=== PATIENT | female | born 1960 | race Caucasian/White ===

== ENCOUNTER 2018-01-26 16:08 | Inpatient (IN) | payer MEDICAID ==
[~2018-01-26] VITALS: Ht 165.1 cm; Wt 80.9 kg
[~2018-01-26 16:08] MED LIST: CANA300T PO; CHOL40002 PO; DOCU100C33 PO; ESTR10TA VG; ESZO3TAB32 PO; HYDR12.597 PO; LISI10TA4 PO; METF500T PO; METH-603 PO; PREG150C PO; TAMS0.4C32 PO
[2018-01-26 17:23] LABS: BASOPHILS % (AUTO) 0.1 % (0-1); EOSINOPHILS # (AUTO) 0.1 X10'3 (0-0.9); EOSINOPHILS % (AUTO) 1.1 % (0-6); HEMATOCRIT 44.2 % (35.0-45.0); HEMOGLOBIN 14.9 g/dl (12.0-16.0); LYMPHOCYTES % (AUTO) 30.8 % (21-51); MEAN CORPUSCULAR HGB CONC 33.8 % (33.0-36.5); MEAN PLATELET VOLUME 9.8 FL (7.4-10.4); MONOCYTES # (AUTO) 0.6 X10'3 (0-0.9); MONOCYTES % (AUTO) 4.6 % (2-12); NEUTROPHILS # (AUTO) 8.3 X10'3 (1.8-7.7); NEUTROPHILS % (AUTO) 63.4 % (42-75); PLATELET COUNT 291 X10'3 (140-440); RED BLOOD COUNT 5.14 X10'6 (4.20-5.60); RED CELL DISTRIBUTION WIDTH 11.9 % (11.5-14.5); WHITE BLOOD COUNT 13.1 X10'3 (4.5-11.0)
[2018-01-26 17:28] LABS: CLARITY,URINE SLIGHTLY CLOUDY (Clear); COLOR,URINE STRAW (Yellow); GLUCOSE, URINE >=1000 mg/dl (Neg); KETONES,URINE NEGATIVE (Neg); LEUKOCYTE ESTERASE ,URINE NEGATIVE (Neg); NITRITES, URINE NEGATIVE (Neg); OCCULT BLOOD,URINE MODERATE (Neg); PH,URINE 5.5 (4.8-8.0); PROTEIN,URINE NEGATIVE (Neg); UROBILINOGEN,URINE 0.2 E.U/dL (0.2-1.0)
[2018-01-26 17:34] LABS: UA COLLECTION TYPE CLN CATCH MIDSTREAM
[2018-01-26 17:40] LABS: MUCUS STRANDS FEW /LPF (Neg); SQUAMOUS EPITHELIAL CELL,UR FEW /LPF (FEW); WBC CLUMPS,URINE MODERATE /HPF (NEGATIVE)
[2018-01-26 17:41] LABS: BACTERIA,URINE FEW /HPF (Neg); RBC,URINE 20-50 /HPF (0-2); WBC,URINE 30-50 /HPF (0-4)
[2018-01-26 17:42] LABS: TRANSITIONAL EPI CELLS,URINE FEW /HPF
[2018-01-26 17:43] LABS: ALANINE AMINOTRANSFERASE 88 U/L (12-78); ALBUMIN 3.8 G/DL (3.4-5.0); ALBUMIN/GLOBULIN RATIO 0.8 (1.1-1.5); ALKALINE PHOSPHATASE 149 IU/L (46-116); ANION GAP 16 (8-16); ASPARTATE AMINO TRANSFERASE 75 U/L (10-37); BILIRUBIN,TOTAL 0.6 MG/DL (0.1-1.0); BLOOD UREA NITROGEN 20 MG/DL (7-18); BUN/CREATININE RATIO 14.1 (6.6-38.0); CALCIUM 10.2 MG/DL (8.5-10.1); CHLORIDE 90 MMOL/L (99-107); CREATININE 1.42 MG/DL (0.40-0.90); SODIUM 125 MMOL/L (135-145); TOTAL CARBON DIOXIDE 19.3 MMOL/L (24-32); TOTAL PROTEIN 8.5 G/DL (6.4-8.2); eGFR 38 ML/MIN
[2018-01-26 17:48] LABS: GLUCOSE 617 MG/DL (70-104)
[2018-01-26] MEDS ORDERED: normal saline 1000ML IV soln IVB ONE (18:00)
[2018-01-26] MEDS ORDERED: insulin regular, human 10 units/0.1 ml syringe IV ONE (18:00)
[2018-01-26 18:45] LABS: ABG BASE EXCESS -4.1 mmol/L (-2.0-3.0); ABG HCO3 21.8 mmol/L (22.0-26.0); ABG OXYGEN SATURATION 95.3 % (95-98); ABG PH (T) 7.323 (7.350-7.450); ABG PO2 (T) 80.3 mmHg (83-108); FCOHb 0.5 % (0.5-1.5); FMetHb 0.2 % (0.3-1.12); FO2Hb 94.6 % (94-100)
[2018-01-26] MEDS ORDERED: CefTRIAXone 2gm/D5W 50ml 50 ML IV ONE (19:05)
[2018-01-26] MEDS ORDERED: LORazepam 2 mg/ml vial IV ONE (19:15)
[2018-01-26] MEDS ORDERED: oxyCODONE/APAP 10/325mg tablet PO ONE (19:55)
[2018-01-26] MEDS ORDERED: normal saline 1000ml 1,000 ML IV ONE (20:20)
[2018-01-26] MEDS ORDERED: temazepam 15mg capsule PO PRN (21:00)
[2018-01-26 21:04] LABS: LIPASE 916 U/L (73-393)
[2018-01-26] MEDS ORDERED: CYAN100087 SQ (21:30)
[2018-01-26] MEDS ORDERED: CHOL10002 SQ (21:30)
[2018-01-26] MEDS ORDERED: diphenhydrAMINE 25mg capsule PO PRN (21:50)
[2018-01-26] MEDS ORDERED: metoclopramide 5 mg/ml inj IV PRN (21:50)
[2018-01-26] MEDS ORDERED: HYDROcodone/acetaminophen 10/325mg tab PO PRN (21:50)
[2018-01-26] MEDS ORDERED: ondansetron/PF 4mg/2ml inj IV PRN (21:50)
[2018-01-26] MEDS ORDERED: HYDROmorphone 1 mg/ml syringe IV PRN (21:50)
[2018-01-26] MEDS ORDERED: HYDROcodone/acetaminophen 5mg/325mg tablet PO PRN (21:50)
[2018-01-26] MEDS ORDERED: mag hydrox/Alum hydrox/simeth 30ml oral suspension PO PRN (21:50)
[2018-01-26] MEDS ORDERED: magnesium hydroxide 30ml (MOM) UD suspension PO PRN (21:50)
[2018-01-26] MEDS ORDERED: bisacodyl 10mg suppository rectal RC PRN (21:50)
[2018-01-26] MEDS ORDERED: morphine 2 MG/ML inj. syringe IV PRN ×2 (21:50)
[2018-01-26] MEDS ORDERED: acetaminophen 325mg tablet PO PRN (21:50)
[2018-01-26] MEDS ORDERED: acetaminophen 650mg rectal suppository RC PRN (21:50)
[2018-01-26] MEDS ORDERED: diphenhydrAMINE 50 mg/ml inj IV PRN (21:50)
[2018-01-26] MEDS ORDERED: glucagon, human recombinant 1mg kit SUBCUT PRN (21:55)
[2018-01-26] MEDS ORDERED: dextrose ORAL solution 15 GM/59 ML bottle PO PRN ×2 (21:55)
[2018-01-26] MEDS ORDERED: dextrose 50%-water 50ml dispensing syringe IV PRN ×2 (21:55)
[2018-01-26] MEDS ORDERED: MESSAGE TO PHARMACY PO ONE (21:55)
[2018-01-26] MEDS: pregabalin 75mg capsule PO SCH (22:16)
[2018-01-26 22:21] LABS: HEMOGLOBIN A1C 11.1 % (4.5-6.2); PHOSPHORUS 2.9 MG/DL (2.3-4.5); TROPONIN I < 0.04 NG/ML (0.0-0.05)
[2018-01-26] MEDS: normal saline 1000ml 1,000 ML IV SCH (23:31)
[2018-01-26 23:50] VITALS: BP 142/77
[2018-01-27] MEDS ORDERED: insulin Lispro (HumaLOG) vial - multi-dose SQ ONE
[2018-01-27] MEDS: HYDROmorphone 1 mg/ml syringe IV PRN ×2 (05:42→10:16)
[2018-01-27 05:51] LABS: ALANINE AMINOTRANSFERASE 91 U/L (12-78); ALBUMIN 2.8 G/DL (3.4-5.0); ALBUMIN/GLOBULIN RATIO 0.7 (1.1-1.5); ALKALINE PHOSPHATASE 113 IU/L (46-116); ANION GAP 7 (8-16); ASPARTATE AMINO TRANSFERASE 96 U/L (10-37); BILIRUBIN,TOTAL 0.5 MG/DL (0.1-1.0); BLOOD UREA NITROGEN 12 MG/DL (7-18); BUN/CREATININE RATIO 15.4 (6.6-38.0); CALCIUM 8.8 MG/DL (8.5-10.1); CHLORIDE 105 MMOL/L (99-107); CREATININE 0.78 MG/DL (0.40-0.90); GLUCOSE 240 MG/DL (70-104); LIPASE 742 U/L (73-393); POTASSIUM 4.1 MMOL/L (3.5-5.1); SODIUM 137 MMOL/L (135-145); TOTAL CARBON DIOXIDE 24.7 MMOL/L (24-32); TOTAL PROTEIN 6.6 G/DL (6.4-8.2); eGFR 76 ML/MIN
[2018-01-27 06:05] LABS: OSMOLALITY 298 MOSM/K (280-300)
[2018-01-27 07:58] VITALS: BP 152/84
[2018-01-27] MEDS: pregabalin 75mg capsule PO SCH ×2 (08:00→19:36)
[2018-01-27] MEDS: methadone 10mg tablet PO SCH ×3 (08:00→19:36)
[2018-01-27] MEDS: pantoprazole 40 MG vial IV SCH ×2 (08:49→19:32)
[2018-01-27] MEDS: insulin Lispro (HumaLOG) vial - multi-dose SQ SCH ×3 (08:58→18:54)
[2018-01-27 09:11] LABS: BASOPHILS % (AUTO) 0.5 % (0-1); EOSINOPHILS # (AUTO) 0.2 X10'3 (0-0.9); EOSINOPHILS % (AUTO) 1.8 % (0-6); HEMATOCRIT 43.8 % (35.0-45.0); HEMOGLOBIN 14.8 g/dl (12.0-16.0); LYMPHOCYTES # (AUTO) 4.3 X10'3 (1.1-4.8); LYMPHOCYTES % (AUTO) 45.1 % (21-51); MEAN CORPUSCULAR HEMOGLOBIN 29.1 PG (27.0-31.0); MEAN CORPUSCULAR HGB CONC 33.8 % (33.0-36.5); MEAN CORPUSCULAR VOLUME 86.2 FL (78-98); MEAN PLATELET VOLUME 9.6 FL (7.4-10.4); MONOCYTES # (AUTO) 0.4 X10'3 (0-0.9); MONOCYTES % (AUTO) 4.6 % (2-12); NEUTROPHILS # (AUTO) 4.6 X10'3 (1.8-7.7); PLATELET COUNT 286 X10'3 (140-440); RED BLOOD COUNT 5.08 X10'6 (4.20-5.60); RED CELL DISTRIBUTION WIDTH 12.4 % (11.5-14.5); WHITE BLOOD COUNT 9.6 X10'3 (4.5-11.0)
[2018-01-27] MEDS: piperacillin/tazo 4.5gm/100ml 100 ML IV SCH ×2 (09:24→19:32)
[2018-01-27] MEDS: normal saline 1000ml 1,000 ML IV SCH ×2 (09:24→17:47)
[2018-01-27] MEDS ORDERED: LORazepam 2 mg/ml vial IV ONE (13:20)
[2018-01-27 13:58] VITALS: BP 151/87
[2018-01-27] MEDS ORDERED: acetaminophen 325mg tablet PO ONE (18:00)
[2018-01-27 20:00] VITALS: BP 141/86
[2018-01-28] VITALS: BP 154/78
[2018-01-28] MEDS: HYDROmorphone 1 mg/ml syringe IV PRN ×2 (02:07→05:33)
[2018-01-28] MEDS: normal saline 1000ml 1,000 ML IV SCH ×2 (03:47→12:37)
[2018-01-28 05:03] LABS: BASOPHILS % (AUTO) 0.4 % (0-1); EOSINOPHILS # (AUTO) 0.2 X10'3 (0-0.9); EOSINOPHILS % (AUTO) 1.9 % (0-6); HEMATOCRIT 41.8 % (35.0-45.0); HEMOGLOBIN 14.3 g/dl (12.0-16.0); LYMPHOCYTES # (AUTO) 2.4 X10'3 (1.1-4.8); MEAN CORPUSCULAR HEMOGLOBIN 29.4 PG (27.0-31.0); MEAN CORPUSCULAR HGB CONC 34.1 % (33.0-36.5); MEAN PLATELET VOLUME 9.2 FL (7.4-10.4); MONOCYTES # (AUTO) 0.2 X10'3 (0-0.9); MONOCYTES % (AUTO) 2.8 % (2-12); NEUTROPHILS # (AUTO) 5.1 X10'3 (1.8-7.7); NEUTROPHILS % (AUTO) 64.9 % (42-75); PLATELET COUNT 251 X10'3 (140-440); RED BLOOD COUNT 4.85 X10'6 (4.20-5.60); RED CELL DISTRIBUTION WIDTH 12.3 % (11.5-14.5); WHITE BLOOD COUNT 7.9 X10'3 (4.5-11.0)
[2018-01-28 05:25] LABS: ALANINE AMINOTRANSFERASE 163 U/L (12-78); ALBUMIN/GLOBULIN RATIO 0.7 (1.1-1.5); ALKALINE PHOSPHATASE 124 IU/L (46-116); ANION GAP 12 (8-16); ASPARTATE AMINO TRANSFERASE 167 U/L (10-37); BILIRUBIN,TOTAL 0.8 MG/DL (0.1-1.0); BLOOD UREA NITROGEN 6 MG/DL (7-18); BUN/CREATININE RATIO 8.2 (6.6-38.0); CALCIUM 9.3 MG/DL (8.5-10.1); CHLORIDE 102 MMOL/L (99-107); CREATININE 0.73 MG/DL (0.40-0.90); GLUCOSE 235 MG/DL (70-104); LIPASE 447 U/L (73-393); POTASSIUM 4.5 MMOL/L (3.5-5.1); SODIUM 137 MMOL/L (135-145); TOTAL CARBON DIOXIDE 23.4 MMOL/L (24-32); TOTAL PROTEIN 7.1 G/DL (6.4-8.2); eGFR 82 ML/MIN
[2018-01-28] MEDS: pantoprazole 40 MG vial IV SCH (07:55)
[2018-01-28] MEDS: pregabalin 75mg capsule PO SCH (07:56)
[2018-01-28] MEDS: methadone 10mg tablet PO SCH ×2 (07:56→13:43)
[2018-01-28 08:00] VITALS: BP 132/76
[2018-01-28] MEDS: piperacillin/tazo 4.5gm/100ml 100 ML IV SCH (08:31)
[2018-01-28] MEDS: insulin Lispro (HumaLOG) vial - multi-dose SQ SCH ×2 (09:23→13:55)
[2018-01-28] MEDS ORDERED: LEVO500T2 PO (09:34)
[2018-01-28 11:43] VITALS: BP 111/72
[2018-01-28] MEDS ORDERED: pantoprazole 40mg Tablet.DR PO SCH (20:00)
== END 2018-01-28 15:37 | disposition home or self-care (01) | DRG 720 ==
LOC: ER 16:09 → ED HOLD 21:47 → EDBEDREQ 22:48 → SUR 3N 23:10 → CMPBEDREQ 23:20
PROVIDERS: ADMIT Family Medicine; ATTEND Internal Medicine
DX: A41.9 Sepsis, unspecified organism (principal); E11.10 Type 2 diabetes mellitus with ketoacidosis without coma; K85.90 Acute pancreatitis without necrosis or infection, unspecified; N17.9 Acute kidney failure, unspecified; I11.0 Hypertensive heart disease with heart failure; I50.9 Heart failure, unspecified; E87.1 Hypo-osmolality and hyponatremia; G89.4 Chronic pain syndrome; G90.50 Complex regional pain syndrome I, unspecified; R74.0 Nonspecific elevation of levels of transaminase and lactic acid dehydrogenase [LDH]; K21.9 Gastro-esophageal reflux disease without esophagitis; K80.50 Calculus of bile duct without cholangitis or cholecystitis without obstruction; N13.6 Pyonephrosis; E11.42 Type 2 diabetes mellitus with diabetic polyneuropathy; Z79.891 Long term (current) use of opiate analgesic; Z80.3 Family history of malignant neoplasm of breast; Z90.5 Acquired absence of kidney; Z90.710 Acquired absence of both cervix and uterus; Z88.0 Allergy status to penicillin; Z88.8 Allergy status to other drugs, medicaments and biological substances; Z90.49 Acquired absence of other specified parts of digestive tract; Z83.3 Family history of diabetes mellitus; Z81.8 Family history of other mental and behavioral disorders; Z91.19 Patient's noncompliance with other medical treatment and regimen; Z79.899 Other long term (current) drug therapy
CPT/HCPCS: 36415; 36600; 74176; 76700; 80053; 81001; 82803; 82948; 83036; 83605; 83690; 83735; 83880; 83930; 84100; 84145; 84443; 84484; 85018; 85025; 87040; 87070; 87088; 96365; 96375; 99285; C9113; G0378; J0696; J1170; J1815; J2060; J2405; J2543; J7030

== ENCOUNTER 2018-11-17 15:52 | Emergency (ER) | payer MEDICAID ==
[~2018-11-17] VITALS: Ht 165.1 cm; Wt 85.0 kg
[~2018-11-17 15:52] MED LIST changes: -CANA300T PO; +CHOL10002 SQ; -CHOL40002 PO; +CYAN100087 SQ; -DOCU100C33 PO; -ESTR10TA VG; -ESZO3TAB32 PO; -HYDR12.597 PO; -LISI10TA4 PO; -TAMS0.4C32 PO
[2018-11-17] MEDS ORDERED: fentaNYL/PF 50MCG/1 ML 2ML syringe IV ONE (17:05)
[2018-11-17] MEDS ORDERED: normal saline 1000ML IV soln IVB ONE (17:05)
[2018-11-17] MEDS ORDERED: ondansetron/PF 4mg/2ml inj IV ONE (17:05)
[2018-11-17 17:35] LABS: BASOPHILS # (AUTO) 0.1 X10'3 (0-0.2); BASOPHILS % (AUTO) 0.5 % (0-1); EOSINOPHILS # (AUTO) 0.2 X10'3 (0-0.9); EOSINOPHILS % (AUTO) 1.6 % (0-6); HEMATOCRIT 43.2 % (35.0-45.0); HEMOGLOBIN 14.4 g/dl (12.0-16.0); LYMPHOCYTES # (AUTO) 5.3 X10'3 (1.1-4.8); LYMPHOCYTES % (AUTO) 44.2 % (21-51); MEAN CORPUSCULAR HEMOGLOBIN 28.7 PG (27.0-31.0); MEAN CORPUSCULAR HGB CONC 33.3 g/dL (33.0-36.5); MEAN CORPUSCULAR VOLUME 86.2 FL (78-98); MEAN PLATELET VOLUME 8.3 FL (7.4-10.4); MONOCYTES # (AUTO) 0.7 X10'3 (0-0.9); MONOCYTES % (AUTO) 5.5 % (2-12); NEUTROPHILS # (AUTO) 5.8 X10'3 (1.8-7.7); NEUTROPHILS % (AUTO) 48.2 % (42-75); PLATELET COUNT 265 X10'3 (140-440); RED BLOOD COUNT 5.01 X10'6 (4.20-5.60); RED CELL DISTRIBUTION WIDTH 12.2 % (11.5-14.5)
[2018-11-17 17:45] LABS: ALANINE AMINOTRANSFERASE 40 U/L (12-78); ALBUMIN 3.3 G/DL (3.4-5.0); ALBUMIN/GLOBULIN RATIO 0.8 (1.1-1.5); ALKALINE PHOSPHATASE 102 IU/L (46-116); ANION GAP 9 (8-16); ASPARTATE AMINO TRANSFERASE 37 U/L (10-37); BILIRUBIN,TOTAL 0.4 MG/DL (0.1-1.0); BLOOD UREA NITROGEN 7 MG/DL (7-18); BUN/CREATININE RATIO 9.2 (6.6-38.0); CALCIUM 9.8 MG/DL (8.5-10.1); CHLORIDE 107 MMOL/L (99-107); CREATININE 0.76 MG/DL (0.40-0.90); GLUCOSE 117 MG/DL (70-104); POTASSIUM 3.8 MMOL/L (3.5-5.1); SODIUM 142 MMOL/L (135-145); TOTAL CARBON DIOXIDE 25.7 MMOL/L (24-32); TOTAL PROTEIN 7.3 G/DL (6.4-8.2); eGFR 78 ML/MIN
--- NOTE | 2018-11-17 17:49 | NUR ---
pt out to ct via shae with guest room inspector
[2018-11-17] MEDS ORDERED: ketorolac trometh. 30mg/ml inj. IV ONE (19:10)
[2018-11-17] MEDS ORDERED: CYCL-1 PO (19:15)
[2018-11-17] MEDS ORDERED: HYDR-4383 PO (19:15)
[2018-11-17 19:35] VITALS: BP 156/96
== END 2018-11-17 19:38 | disposition home or self-care (01) ==
LOC: ER 15:53
DX: S06.0X0A Concussion without loss of consciousness, initial encounter (principal); S82.51XA Displaced fracture of medial malleolus of right tibia, initial encounter for closed fracture; S82.61XA Displaced fracture of lateral malleolus of right fibula, initial encounter for closed fracture; S13.9XXA Sprain of joints and ligaments of unspecified parts of neck, initial encounter; M25.552 Pain in left hip; K21.9 Gastro-esophageal reflux disease without esophagitis; E11.9 Type 2 diabetes mellitus without complications; G89.29 Other chronic pain; Z90.5 Acquired absence of kidney; Z90.49 Acquired absence of other specified parts of digestive tract; Z90.710 Acquired absence of both cervix and uterus; Z98.890 Other specified postprocedural states; Z88.0 Allergy status to penicillin; Z88.5 Allergy status to narcotic agent; Z88.8 Allergy status to other drugs, medicaments and biological substances; Z79.899 Other long term (current) drug therapy; W18.39XA Other fall on same level, initial encounter; Y93.89 Activity, other specified; Y92.89 Other specified places as the place of occurrence of the external cause; Y99.8 Other external cause status
CPT/HCPCS: 29515; 36415; 70450; 71045; 72125; 73502; 73610; 74176; 80053; 85025; 85610; 96374; 96375; 99284; J1885; J2405; J3010; J7030

== ENCOUNTER 2019-11-25 16:55 | Emergency (ER) | payer MEDICAID ==
[~2019-11-25] VITALS: Ht 165.1 cm; Wt 72.0 kg
[~2019-11-25 16:55] MED LIST changes: +CYCL-1 PO; +HYDR-4383 PO
[2019-11-25 18:18] LABS: BASOPHILS # (AUTO) 0.1 X10'3 (0-0.2); BASOPHILS % (AUTO) 0.8 % (0-1); EOSINOPHILS # (AUTO) 0.1 X10'3 (0-0.9); EOSINOPHILS % (AUTO) 1.4 % (0-6); HEMATOCRIT 44.1 % (35.0-45.0); HEMOGLOBIN 14.9 g/dl (12.0-16.0); LYMPHOCYTES # (AUTO) 4.7 X10'3 (1.1-4.8); MEAN CORPUSCULAR HEMOGLOBIN 29.4 PG (27.0-31.0); MEAN CORPUSCULAR HGB CONC 33.8 g/dL (33.0-36.5); MEAN CORPUSCULAR VOLUME 87.1 FL (78-98); MEAN PLATELET VOLUME 9.6 FL (7.4-10.4); MONOCYTES # (AUTO) 0.8 X10'3 (0-0.9); MONOCYTES % (AUTO) 7.4 % (2-12); NEUTROPHILS # (AUTO) 4.7 X10'3 (1.8-7.7); NEUTROPHILS % (AUTO) 45.4 % (42-75); PLATELET COUNT 256 X10'3 (140-440); RED BLOOD COUNT 5.07 X10'6 (4.20-5.60); RED CELL DISTRIBUTION WIDTH 13.2 % (11.5-14.5); WHITE BLOOD COUNT 10.4 X10'3 (4.5-11.0)
[2019-11-25] MEDS ORDERED: normal saline 1000ML IV soln IV ONE (18:35)
[2019-11-25 18:45] LABS: ALANINE AMINOTRANSFERASE 62 U/L (12-78); ALBUMIN 3.6 G/DL (3.4-5.0); ALBUMIN/GLOBULIN RATIO 0.8 (1.1-1.5); ALKALINE PHOSPHATASE 110 IU/L (46-116); ANION GAP 12 (8-16); ASPARTATE AMINO TRANSFERASE 39 U/L (10-37); BILIRUBIN,TOTAL 0.5 MG/DL (0.1-1.0); BLOOD UREA NITROGEN 14 MG/DL (7-18); BUN/CREATININE RATIO 12.3 (6.6-38.0); CHLORIDE 95 MMOL/L (99-107); CREATININE 1.14 MG/DL (0.40-0.90); SODIUM 129 MMOL/L (135-145); TOTAL CARBON DIOXIDE 22.1 MMOL/L (24-32); TOTAL PROTEIN 8.3 G/DL (6.4-8.2); eGFR 49 ML/MIN
[2019-11-25 18:50] LABS: GLUCOSE 522 MG/DL (70-104)
[2019-11-25 20:13] VITALS: BP 157/95
== END 2019-11-25 20:05 | disposition home or self-care (01) ==
LOC: ER 16:56
DX: E11.65 Type 2 diabetes mellitus with hyperglycemia (principal); R53.83 Other fatigue; K21.9 Gastro-esophageal reflux disease without esophagitis; G89.29 Other chronic pain; Z90.49 Acquired absence of other specified parts of digestive tract; Z90.710 Acquired absence of both cervix and uterus; Z98.890 Other specified postprocedural states; Z88.0 Allergy status to penicillin; Z88.5 Allergy status to narcotic agent; Z88.8 Allergy status to other drugs, medicaments and biological substances; Z79.899 Other long term (current) drug therapy
CPT/HCPCS: 36415; 80053; 82948; 85025; 96360; 99283; J7030